=== PATIENT | male | born 1960 | race American Indian/Alaskan Native ===

== ENCOUNTER 2017-04-19 18:46 | Emergency (ER) | payer SELFPAY ==
[2017-04-19 19:06] VITALS: BP 168/116
--- NOTE | 2017-04-19 19:06 | Emergency Department Report ---
Chief Complaint: High BP Stated Complaint: HTN Time Seen by Provider: 04/19/17 19:04 - HPI History of Present Illness: PT states he was seen at [facility] today and sent to the ed for evaluation of his bp. - ROS Review of Systems: - rahman - cp - Exam Physical Exam: pt looks well, non toxic. no acute distress in triage no focal weakness MSE screening note: Focused history and physical exam performed. Due to findings the following was ordered: labs ED Disposition for MSE Condition: Stable
--- NOTE | 2017-04-20 15:07 | ED Elopement Review ---
ED Pt Elopement review - Call Back decision Pt Call Back Decision: Pt to F/U with PMD
== END 2017-04-20 01:23 | disposition left against medical advice (07) ==
LOC: ED 18:46
DX: I10 Essential (primary) hypertension (principal); Z53.21 Procedure and treatment not carried out due to patient leaving prior to being seen by health care provider